=== PATIENT | female | born 1995 | race Caucasian/White ===

== ENCOUNTER 2017-01-25 16:07 | Emergency (ER) | payer OTHER ==
[~2017-01-25] VITALS: Ht 160 cm; Wt 60.0 kg
[2017-01-25 16:14] VITALS: TEMP 36.9; Ht 160 cm; Wt 60.0 kg
[2017-01-25] MEDS ORDERED: BCPILLS PO (16:39)
--- NOTE | 2017-01-25 17:11 | DIAGNOSTIC IMAGING REPORT ---
RIGHT FOOT MIN 3 VIEWS ROUTINE CLINICAL HISTORY: 21 years-old Female presenting with roll right foot one day ago, fifth metatarsal pain. TECHNIQUE: Frontal, oblique, and lateral views of the right foot were obtained. COMPARISON: None. FINDINGS: Linear radiolucency across the base of the fifth metatarsal, consistent with nondisplaced intra-articular fracture. The patient is skeletally mature. No subluxation at the tarsometatarsal articulation of the cuboid with the base of the fifth metatarsal. Mild overlying soft tissue swelling along the lateral foot. IMPRESSION: Findings consistent with nondisplaced intra-articular fracture of the base of the fifth metatarsal (pseudo-Miner fracture/avulsion fracture of the fifth metatarsal styloid). Electronically signed by: Aaron Whitley M.D. 01/25/2017 5:09 PM Dictated Date/Time: 01/25/2017 5:07 PM
--- NOTE | 2017-01-25 17:41 | EMERGENCY ROOM VISIT NOTE ---
History Report prepared by [place]: Regino Toro Under the Supervision of: Dr. Quintin De La O D.O. First contact with patient: 16:20 Chief Complaint: FOOT PAIN Stated Complaint: RT FOOT PAIN, SWOLLEN History of Present Illness The patient is a 21 year old female who presents to the Emergency Room with complaints of constant right foot pain starting last night after rolling her ankle. The patient denies any left leg pain. She states that she can barely walk on the foot because walking exacerbates the pain. Source of History: patient Onset: last night Position: foot (right) Timing: constant Modifying Factors (Worsening): other (walking) Review of Systems See HPI for pertinent positives & negatives. A total of 10 systems reviewed and were otherwise negative. Family History Patient reports no known family medical history. Social History Smoking Status: Never Smoker Marital Status: single Housing Status: lives with roommate Occupation Status: [employer] student Current/Historical Medications Scheduled Control Pills ( Control Pills), 1 TAB PO DAILY Allergies Coded Allergies: No Known Allergies (Unverified , 01/25/17) Physical Exam Vital Signs Date Time Temp Pulse Resp B/P (MAP) Pulse Ox O2 Delivery O2 Flow Rate FiO2 01/25/17 16:14 36.9 94 16 131/86 99 Room Air Physical Exam CONSTITUTIONAL/VITAL SIGNS: Reviewed / noted above. GENERAL: Non-toxic in appearance. INTEGUMENTARY: Warm, dry, and [place]. HEAD: Normocephalic. EYES: without scleral icterus or trauma. ENT/OROPHARYNX: clear and moist. LYMPHADENOPATHY/NECK: Is supple without lymphadenopathy or meningismus. RESPIRATORY: Lungs clear and equal. CARDIOVASCULAR: Regular rate and rhythm. GI/ABDOMEN: Soft and nontender. No organomegaly or pulsatile mass. No rebound or guarding. Normal bowel sounds. EXTREMITIES: Ecchymosis and swelling to the dorsal right foot. Warm and well perfused. BACK: No CVA tenderness. NEUROLOGICAL: Intact without focal deficits. PSYCHIATRIC: normal affect. MUSCULOSKELETAL: Normally developed with good muscle tone. Medical Decision & Procedures ER Provider Diagnostic Interpretation: Radiology results as stated below per my review and radiologist interpretation: RIGHT FOOT MIN 3 VIEWS ROUTINE CLINICAL HISTORY: 21 years-old Female presenting with roll right foot one day ago, fifth metatarsal pain. TECHNIQUE: Frontal, oblique, and lateral views of the right foot were obtained. COMPARISON: None. FINDINGS: Linear radiolucency across the base of the fifth metatarsal, consistent with nondisplaced intra-articular fracture. The patient is skeletally mature. No subluxation at the tarsometatarsal articulation of the cuboid with the base of the fifth metatarsal. Mild overlying soft tissue swelling along the lateral foot. IMPRESSION: Findings consistent with nondisplaced intra-articular fracture of the base of the fifth metatarsal (pseudo-Miner fracture/avulsion fracture of the fifth metatarsal styloid). Electronically signed by: Aaron Whitley M.D. 01/25/2017 5:09 PM Dictated Date/Time: 01/25/2017 5:07 PM ED Course 1620: Previous medical records were reviewed. The patient was evaluated in room D1. A complete history and physical examination was performed. 1730: On reevaluation, the patient is doing well. I discussed the results and findings with the patient. She verbalized agreement of the treatment plan. She was discharged home. Medical Decision Differential diagnoses include: fracture, dislocation, and strain. This is a 21-year-old female who rolled her right ankle/foot last night. She has been able to and weight but with discomfort. X-ray reveals a nondisplaced fifth metatarsal fracture. The patient was placed in a fracture boot. She is placed on crutches and orthopedic follow-up was recommended. She will call on Saturday. Impression Primary Impression: Foot fracture, right Scribe Attestation The scribe's documentation has been prepared under my direction and personally reviewed by me in its entirety. I confirm that the note above accurately reflects all work, treatment, procedures, and medical decision making performed by me. Departure Information Dispostion Home / Self-Care Referrals No Doctor, Assigned (PCP) Patient Instructions My [facility] Additional Instructions Your xray shows a non displaced fracture of the 5th metatarsal. Use crutches and no weight bearing until approved by orthopedics. Follow-up with orthopedics, Dr. Jacobs / [facility], for recheck next week. Call Saturday for appointment. Take Tylenol / Motrin for pain.
[2017-01-25 18:08] VITALS: BP 123/65; PULSE 74; O2SAT 99
== END 2017-01-25 18:10 | disposition home or self-care (01) ==
LOC: C.EDB 16:09 → C.EDD 18:10
DX: S92.354A Nondisplaced fracture of fifth metatarsal bone, right foot, initial encounter for closed fracture (principal); X50.0XXA Overexertion from strenuous movement or load, initial encounter; Z79.3 Long term (current) use of hormonal contraceptives